=== PATIENT | female | born 1990 | race Caucasian/White ===

== ENCOUNTER 2021-07-14 12:45 | Inpatient (IN) | payer OTHER ==
[~2021-07-14] VITALS: Ht 162.6 cm; Wt 78.0 kg
[~2021-07-14 12:45] MED LIST: IRON325 M1 PO; VITAFOL-OB+DHA1 EACH PO
--- NOTE | 2021-07-15 07:41 | NUR ---
covid swab collected sent to in-house lab
--- NOTE | 2021-07-15 12:42 | PR ---
[facility] [address] [facility] [place], [place] [address] Signed Progress Notes IP Datetime Report Generated by CPN: 07/15/2021 12:42 PROGRESS NOTES: [id number] Impression: Normal Progression of Labor; Reassuring Heart Rate Procedures: Artificial ROM; Sterile Vag Exam Plan: Continue Present Management VITAL SIGNS: [id number] Vital Signs: Reviewed VS Notable Details: intermittent tachycardia EXAM: [id number] Dilatation: 3.0 Effacement: 70 Station: -2 Contractions: occ MEMBRANES: [id number] Comments: Starting to notice her contractions more. Will continue. Epidural prn. FETUS A: [id number] FHR Baseline: 140 Variability: Moderate 6-25bpm Accelerations: 15X15 Decelerations: None FHR Category: Category I Presentation: Vertex Comments on Fetus A: No evidence of metabolic acidosis FETUS B: [id number] Signing Physician: Tierra Escobar MD Copies: ~ *Electronically Signed* 07/15/21 1242 TIERRA ESCOBAR MD PATIENT NAME: ISSA JUNIOREEN PIPE PROGRESS NOTE DATE OF : 89 PHYSICIAN: TIERRA ESCOBAR MD RPT #: [id number] REPORT IS CONFIDENTIAL AND NOT TO BE RELEASED WITHOUT AUTHORIZATION
--- NOTE | 2021-07-15 17:00 | PR ---
[facility] [address] [place], [place] [address] Signed Progress Notes IP Datetime Report Generated by DASIA: 07/15/2021 17:00 PROGRESS NOTES: [id number] Impression: Normal Progression of Labor Procedures: Intrauterine Pressure Catheter; Scalp Electrode Plan: Continue Present Management Other Plans: position changes VITAL SIGNS: [id number] Vital Signs: Reviewed VS Notable Details: intermittent tachycardia EXAM: [id number] Dilatation: 6.0 Effacement: 80 Station: -2 Contractions: occ MEMBRANES: [id number] Comments: Progressing. Will place IUPC and FSE and continue close observation with position changes. FETUS A: [id number] FHR Baseline: 140 Variability: Moderate 6-25bpm Accelerations: 15X15 Decelerations: None FHR Category: Category I Presentation: Vertex Comments on Fetus A: No evidence of metabolic acidosis FETUS B: [id number] Signing Physician: Tierra Escobar MD Copies: ~ *Electronically Signed* 07/15/21 1700 TIERRA ESCOBAR MD PATIENT NAME: EVELYN JUNIOR PROGRESS NOTE DATE OF : 89 PHYSICIAN: TIERRA ESCOBAR MD RPT #: [id number] REPORT IS CONFIDENTIAL AND NOT TO BE RELEASED WITHOUT AUTHORIZATION
--- NOTE | 2021-07-15 17:41 | PR ---
[facility] [address] [facility] [place] [place] [address] Signed Progress Notes IP Datetime Report Generated by CPN: 07/15/2021 17:41 PROGRESS NOTES: [id number] Impression: Normal Progression of Labor Procedures: Sterile Vag Exam Plan: Continue Present Management Other Plans: position change VITAL SIGNS: [id number] Vital Signs: Reviewed VS Notable Details: intermittent tachycardia EXAM: [id number] Dilatation: 9.0 Effacement: 80 Station: -1 Contractions: occ MEMBRANES: [id number] Comments: Progressing but with recurrent variables and prolonged decel though only to 120. Will begin amnioinfusion. FETUS A: [id number] FHR Baseline: 140 Variability: Moderate 6-25bpm Accelerations: 15X15 Decelerations: None FHR Category: Category I Presentation: Vertex Comments on Fetus A: No evidence of metabolic acidosis FETUS B: [id number] Signing Physician: Tierra Escobar MD Copies: ~ *Electronically Signed* 07/15/21 1741 TIERRA ESCOBAR MD PATIENT NAME: EVELYN JUNIOR PROGRESS NOTE DATE OF : 89 PHYSICIAN: TIERRA ESCOBAR MD RPT #: [id number] REPORT IS CONFIDENTIAL AND NOT TO BE RELEASED WITHOUT AUTHORIZATION
--- NOTE | 2021-07-16 08:11 | PR ---
[facility] [address] [facility] [place], [place] [address] Signed PP Progress Notes Datetime Report Generated by CPN: 07/16/2021 08:11 SUBJECTIVE: [id number] Pain: Within Normal Limits Vital Signs: [id number] Vital Signs: Reviewed; Within Normal Limits Cardiovascular: Not Done Respiratory: Not Done Abdomen/Uterus: Abnormal Lochia: Normal Vulva/Perineum: Not Done Breasts: Not Done CVA Tenderness: Not Done Extremities: Normal Incision: Not Applicable Progress: Normal Exam Comments: Fundus firm, NT @ U-1. H/H 01/17.9, WBC 18.7, plat 334k IMPRESSION/PLAN/PROCEDURES: [id number] Impression: Normal Progression Plan: Continue Present Management Progress Notes: Doing well. She is interested in discharge tonight if OK with peds. Will check later today after peds has been by to see baby. Signing Physician: Tierra Escobar MD Copies: ~ *Electronically Signed* 07/16/21810 TIERRA ESCOBAR MD PATIENT NAME: EVELYN JUNIOR PROGRESS NOTE DATE OF : 90 PHYSICIAN: TIERRA ESCOBAR MD RPT #: [id number] REPORT IS CONFIDENTIAL AND NOT TO BE RELEASED WITHOUT AUTHORIZATION
== END 2021-07-16 19:25 | disposition home or self-care (01) | DRG 807 ==
LOC: FBC 07-15 06:10
PROVIDERS: ADMIT Obstetrics & Gynecology; ATTEND Obstetrics & Gynecology
PROC: 10E0XZZ Delivery of Products of Conception, External Approach (ICD-10-PCS; principal; 2021-07-15)
PROC: 3E0R3BZ Introduction of Anesthetic Agent into Spinal Canal, Percutaneous Approach (ICD-10-PCS; 2021-07-15)
PROC: 00HU33Z Insertion of Infusion Device into Spinal Canal, Percutaneous Approach (ICD-10-PCS; 2021-07-15)
DX: O14.94 Unspecified pre-eclampsia, complicating childbirth (principal); Z37.0 Single live birth; Z3A.39 39 weeks gestation of pregnancy; Z20.822 Contact with and (suspected) exposure to COVID-19; O99.892 Other specified diseases and conditions complicating childbirth; R00.0 Tachycardia, unspecified; O99.344 Other mental disorders complicating childbirth; F41.9 Anxiety disorder, unspecified; F32.A Depression, unspecified; F90.9 Attention-deficit hyperactivity disorder, unspecified type; Z79.899 Other long term (current) drug therapy; Z91.030 Bee allergy status; Z90.89 Acquired absence of other organs; Z98.890 Other specified postprocedural states
CPT/HCPCS: 01960; 36415; 82803; 85027; 86850; 86900; 86901; A9270; C9803; J2590; J2795; J3010; J7121; U0003